=== PATIENT | male | born 1990 | race African-American/Black ===

== ENCOUNTER 2019-04-16 10:50 | Emergency (ER) | payer OTHER ==
[~2019-04-16] VITALS: Ht 177.8 cm; Wt 118.6 kg
[2019-04-16 12:07] LABS: APPEARANCE, URINE CLEAR (CLEAR); BACTERIA, URINE AUTO NEGATIVE (NEGATIVE); BILIRUBIN, URINE AUTO NEGATIVE (NEGATIVE); BLOOD, URINE BLOOD NEGATIVE (NEGATIVE); COLOR, URINE YELLOW (YELLOW); GLUCOSE, URINE (UA) AUTO NEGATIVE (NEGATIVE); KETONE, URINE AUTO NEGATIVE (NEGATIVE); LEUKOCYTE ESTERASE, URINE AUTO NEGATIVE (NEGATIVE); NITRITE, URINE AUTO NEGATIVE (NEGATIVE); PROTEIN, URINE AUTO NEGATIVE (NEGATIVE); RBC, URINE AUTO 3 /HPF (0-3); SPECIFIC GRAVITY URINE AUTO 1.023 (1.002-1.035); SQUAMOUS EPITHELIAL CELL UR AU 0 /HPF (0-6); UROBILINOGEN, URINE AUTO 0.2 mg/dL (0.0-2.0); WBC, URINE AUTO 4 /HPF (0-3)
--- NOTE | 2019-04-16 12:23 | REP ---
RIGHT SHOULDER, THREE VIEWS: There is no evidence of an acute fracture, dislocation or intrinsic bone disease. IMPRESSION: No fracture or dislocation. Electronically Signed by Deuce Stoll MD 04/16/2019 02:38 P
--- NOTE | 2019-04-16 12:23 | REP ---
STERNUM, TWO VIEWS: Two views of the sternum demonstrate no definite acute fracture or dislocation. No intrinsic osseous pathology is seen. IMPRESSION: No evidence of sternal fracture radiographically. Electronically Signed by Deuce Stoll MD 04/16/2019 02:38 P
--- NOTE | 2019-04-16 12:25 | REP ---
THORACIC SPINE, AP AND LATERAL: AP and lateral views of thoracic spine performed. There is no compression fracture or malalignment with normal thoracic kyphosis. Disc spaces appear preserved. Posterior elements appear intact. IMPRESSION: No acute fracture or dislocation. Electronically Signed by Deuce Stoll MD 04/16/2019 02:38 P
--- NOTE | 2019-04-16 12:30 | REP ---
LUMBOSACRAL SPINE, FIVE VIEWS: Five views lumbosacral spine performed. There is no compression fracture. There is normal alignment. There normal lumbar lordosis. No disc space narrowing is seen. Posterior elements are intact. IMPRESSION: No fracture or dislocation. Electronically Signed by Deuce Stoll MD 04/16/2019 02:38 P
[2019-04-16 13:03] VITALS: BP 133/85
== END 2019-04-16 13:08 | disposition home or self-care (01) ==
LOC: M ED 10:50
DX: S16.1XXA Strain of muscle, fascia and tendon at neck level, initial encounter (principal); V49.50XA Passenger injured in collision with unspecified motor vehicles in traffic accident, initial encounter; Y92.410 Unspecified street and highway as the place of occurrence of the external cause; M54.6 Pain in thoracic spine; M25.511 Pain in right shoulder